=== PATIENT | male | born 1970 | race African-American/Black ===

== ENCOUNTER 2019-05-18 22:42 | Emergency (ER) | payer MEDICAID ==
[~2019-05-18] VITALS: Ht 182.9 cm; Wt 71.0 kg
[2019-05-18 23:14] VITALS: BP 115/71
== END 2019-05-19 03:11 | disposition left against medical advice (07) ==
LOC: ER 22:42
DX: Z53.21 Procedure and treatment not carried out due to patient leaving prior to being seen by health care provider (principal)